=== PATIENT | female | born 1995 | race Caucasian/White ===

== ENCOUNTER 2016-07-26 14:13 | Emergency (ER) | payer SELFPAY ==
[2016-07-26 14:30] VITALS: BP 119/83
== END 2016-07-26 23:21 | disposition left against medical advice (07) ==
LOC: ED 14:13
DX: M79.1 Myalgia (principal); R10.9 Unspecified abdominal pain; R51 Headache; R42 Dizziness and giddiness; Z53.21 Procedure and treatment not carried out due to patient leaving prior to being seen by health care provider

== ENCOUNTER 2016-07-31 01:29 | Emergency (ER) | payer OTHER ==
[2016-07-31 02:20] LABS: Bilirubin,Urine NEG (Negative); Blood,Urine LG (Negative); Ketones,Urine NEG (Negative); Leukocyte Esterase,Urine NEG (Negative); Mucus,Urine FEW /HPF; Nitrite,Urine NEG (Negative); Protein,Urine <15 mg/dL mg/dL (Negative); Urobilinogen,Urine < 2.0 mg/dL (<2.0)
[2016-07-31 02:50] LABS: Basophils % (Auto) 0.5 % (0.0-1.8); Eosinophils % (Auto) 1.3 % (0.0-4.3); Hematocrit 37.4 % (30.3-42.9); Hemoglobin 12.1 gm/dl (10.1-14.3); Mean Corpuscular HGB Conc 32 % (30-34); Mean Corpuscular Volume 77 fl (79-97); Platelet Count 213 K/mm3 (140-440); Red Blood Count 4.86 M/mm3 (3.65-5.03); Red Cell Distribution Width 14.4 % (13.2-15.2); White Blood Count 6.3 K/mm3 (4.5-11.0)
[2016-07-31 02:52] LABS: Mean Corpuscular Hemoglobin 25 pg (28-32)
[2016-07-31 05:48] LABS: INR 1.03 (0.87-1.13)
[2016-07-31 05:49] LABS: Partial Thromboplastin Time 30.3 Sec. (24.2-36.6)
--- NOTE | 2016-07-31 06:23 | Ultrasound Report ---
FINAL REPORT EXAM: US OB TRANSVAGINAL HISTORY: preg, abd pain, vag bleed TECHNIQUE: Real time transabdominal and transvaginal pelvic ultrasound. Initially, transabdominal scanning was performed. Subsequently, transvaginal scanning was performed to better evaluate the uterus and ovaries. PRIORS: None FINDINGS: Uterus measures 7.6 x 3.7 x 5.1 cm. Endometrium is 1.5 cm, slightly heterogeneous. Normal bilateral ovaries measuring 2.7 x 1.6 x 2.2 cm on the right and 2.7 x 1.8 x 1.8 cm on the left. No adnexal mass or free fluid. IMPRESSION: 1. No intrauterine gestation identified. Slightly heterogeneous endometrium at 1.5 cm in thickness. Possibilities include early gestation, spontaneous , or ectopic . Followup beta hCG or ultrasound recommended.
--- NOTE | 2016-07-31 06:24 | Ultrasound Report ---
FINAL REPORT EXAM: US OB < = 14 WEEKS FETUS HISTORY: , abd pain, vaginal bleeding TECHNIQUE: Real time transabdominal and transvaginal pelvic ultrasound. Initially, transabdominal scanning was performed. Subsequently, transvaginal scanning was performed to better evaluate the uterus and ovaries. PRIORS: None FINDINGS: Uterus measures 7.6 x 3.7 x 5.1 cm. Endometrium is 1.5 cm, slightly heterogeneous. Normal bilateral ovaries measuring 2.7 x 1.6 x 2.2 cm on the right and 2.7 x 1.8 x 1.8 cm on the left. No adnexal mass or free fluid. IMPRESSION: 1. No intrauterine gestation identified. Slightly heterogeneous endometrium at 1.5 cm in thickness. Possibilities include early gestation, spontaneous , or ectopic . Followup beta hCG or ultrasound recommended.
[2016-07-31] MEDS ORDERED: TYLENOL PO ONE (10:56)
--- NOTE | 2016-07-31 11:00 | Emergency Department Report ---
ED Female HPI - General Chief complaint: Abdominal Pain Stated complaint: ABD PAIN/DIZZINESS Time Seen by Provider: 07/31/16 10:10 Source: patient Mode of arrival: Ambulatory Limitations: No Limitations - History of Present Illness Initial comments: 21-year-old female with a past medical history of PID presents to the hospital complaining of vaginal spotting and suprapubic cramping abdominal pain 1 week. Patient's last menstrual cycle was 06/22/2016. Patient states the vaginal bleeding and pain started on 07/24/2015. There was a right time for her menstrual cycle but abnormal because it started as spotting and became more heavy today. 3 pads used in 24-hour period. Patient complains of moderate intermittent suprapubic cramping abdominal pain. No complaint of nausea, vomiting, or syncope. - Related Data Allergies Allergy/AdvReac Type Severity Reaction Status Date / Time hydrocodone Allergy Unknown Verified 07/26/16 14:25 ED Review of Systems ROS: Stated complaint: ABD PAIN/DIZZINESS Other details as noted in HPI Comment: All other systems reviewed and negative Other: Constitutional: No fevers chills Eyes: No eye pain visual changes ENT: No ear pain or throat pain Neck: Denies pain Respiratory: Denies cough wheezing shortness of breath Cardiovascular: Denies chest pain, palpitations, syncope GI: as per hpi : Denies dysuria Musculoskeletal: Denies back pain, joint swelling Skin: Denies rash, lesions, erythema Neurologic: Denies headache, numbness, weakness Psychiatric: Denies suicidal ideation, hallucinations ED Past Medical Hx - Past Medical History Previous Medical History?: Yes Additional medical history: PID - Surgical History Past Surgical History?: No - Social History Smoking Status: Never Smoker Substance Use Type: None ED Physical Exam - General Limitations: No Limitations - Other Other exam information: General: No limitations, patient is alert in no acute distress Head exam: Atraumatic, normocephalic Eyes exam: Normal appearance ENT: Moist mucous membrane, normal oropharynx Neck exam: Normal inspection, full range of motion Respiratory exam: Clear to auscultation bilateral, no wheezes, rales, crackles Cardiovascular: Normal rate and rhythm, normal heart sounds Abdomen: Soft, nondistended, suprapubic tenderness, with normal bowel sounds, no rebound, or guarding Extremity: Full range of motion normal inspection no deformity Back: Normal Inspection, full range of motion, no tenderness Neurologic: Alert, oriented x3, cranial nerves intact, no motor or sensory deficit Psychiatric: normal affect, normal mood Skin: Warm, dry, intact ED Course Vital Signs 07/31/16 07/31/16 01:51 10:33 Temperature 97.6 F Pulse Rate 86 Respiratory 20 Rate Blood Pressure 137/81 O2 Sat by Pulse 100 Oximetry - Reevaluation(s) Reevaluation #1: 07/31/16 11:00 Patient has RhoGAM and Tylenol ordered - Consultations Consultation #1: 07/31/16 10:59 Case discussed with Ashley Interiano with PERIPATOLOGIST. Agree to follow-up in 2 days. Request to call the office today to arrange for 2 day follow-up for repeat beta Quant testing ED Medical Decision Making - Lab Data Result diagrams: 07/31/16 02:29 Lab Results 07/31/16 07/31/16 07/31/16 Range/Units 02:05 02:29 02:29 WBC 6.3 (4.5-11.0) K/mm3 RBC 4.86 (3.65-5.03) M/mm3 Hgb 12.1 (10.1-14.3) gm/dl Hct 37.4 (30.3-42.9) % MCV 77 L (79-97) fl MCH 25 L (28-32) pg MCHC 32 (30-34) % RDW 14.4 (13.2-15.2) % Plt Count 213 (140-440) K/mm3 Lymph % (Auto) 32.2 (13.4-35.0) % Patrick % (Auto) 10.8 H (0.0-7.3) % Eos % (Auto) 1.3 (0.0-4.3) % Baso % (Auto) 0.5 (0.0-1.8) % Lymph # 2.0 (1.2-5.4) K/mm3 Patrick # 0.7 (0.0-0.8) K/mm3 Eos # 0.1 (0.0-0.4) K/mm3 Baso # 0.0 (0.0-0.1) K/mm3 Seg Neutrophils % 55.2 (40.0-70.0) % Seg Neutrophils # 3.5 (1.8-7.7) K/mm3 PT (12.2-14.9) Sec. INR (0.87-1.13) APTT (24.2-36.6) Sec. HCG, Quant 82.13 H (0-4) mIU/mL Urine Color Yellow (Yellow) Urine Turbidity Clear (Clear) Urine pH 6.0 (5.0-7.0) Ur Specific [place] 1.018 (1.003-1.030) Urine Protein <15 mg/dl (Negative) mg/dL Urine Glucose (UA) Neg (Negative) mg/dL Urine Ketones Neg (Negative) mg/dL Urine Blood Lg (Negative) Urine Nitrite Neg (Negative) Urine Bilirubin Neg (Negative) Urine Urobilinogen < 2.0 (<2.0) mg/dL Ur Leukocyte Esterase Neg (Negative) Urine WBC (Auto) 1.0 (0.0-6.0) /HPF Urine RBC (Auto) 1.0 (0.0-6.0) /HPF U Epithel Cells (Auto) 1.0 (0-13.0) /HPF Urine Mucus Few /HPF Blood Type Antibody Screen Ord Rhogam Gestat Weeks WEEKS 07/31/16 07/31/16 Range/Units 05:10 05:10 WBC (4.5-11.0) K/mm3 RBC (3.65-5.03) M/mm3 Hgb (10.1-14.3) gm/dl Hct (30.3-42.9) % MCV (79-97) fl MCH (28-32) pg MCHC (30-34) % RDW (13.2-15.2) % Plt Count (140-440) K/mm3 Lymph % (Auto) (13.4-35.0) % Patrick % (Auto) (0.0-7.3) % Eos % (Auto) (0.0-4.3) % Baso % (Auto) (0.0-1.8) % Lymph # (1.2-5.4) K/mm3 Patrick # (0.0-0.8) K/mm3 Eos # (0.0-0.4) K/mm3 Baso # (0.0-0.1) K/mm3 Seg Neutrophils % (40.0-70.0) % Seg Neutrophils # (1.8-7.7) K/mm3 PT 13.4 (12.2-14.9) Sec. INR 1.03 (0.87-1.13) APTT 30.3 (24.2-36.6) Sec. HCG, Quant (0-4) mIU/mL Urine Color (Yellow) Urine Turbidity (Clear) Urine pH (5.0-7.0) Ur Specific [place] (1.003-1.030) Urine Protein (Negative) mg/dL Urine Glucose (UA) (Negative) mg/dL Urine Ketones (Negative) mg/dL Urine Blood (Negative) Urine Nitrite (Negative) Urine Bilirubin (Negative) Urine Urobilinogen (<2.0) mg/dL Ur Leukocyte Esterase (Negative) Urine WBC (Auto) (0.0-6.0) /HPF Urine RBC (Auto) (0.0-6.0) /HPF U Epithel Cells (Auto) (0-13.0) /HPF Urine Mucus /HPF Blood Type AB NEGATIVE Antibody Screen Negative Ord Rhogam Gestat Weeks <11 WEEKS - Radiology Data Radiology results: report reviewed Transvaginal/pelvic ultrasound: No IUP. Slightly heterogenous endometrium at 1.5 cm in thickness. No Adnexal masses or free fluid - Medical Decision Making Patient is agreeable to receiving RhoGAM and explained to her that it is considered a blood product. Patient denies any buddhist contraindication to receiving blood products and is agreeable to receiving RhoGAM at this time. I explained to patient the differential of early versus ectopic versus miscarriage and importance of follow-up in 2 days for repeat beta hCG testing. Patient was provided number for [facility] to schedule follow-up. Alternatively patient may return here for follow-up if unable to see [facility] but [facility] is preferred. No ultrasound identification of IUP and there were no signs of free fluid at this time. - Differential Diagnosis miscarriage, ectopic, menstrual cycle Critical Care Time: No Critical care attestation.: If time is entered above; I have spent that time in minutes in the direct care of this critically ill patient, excluding procedure time. ED Disposition Clinical Impression: Bleeding in early Rh negative status during Qualifiers: Trimester: first trimester Qualified Code(s): O09.891 - Supervision of other high risk pregnancies, first trimester Disposition: DISCHARGED TO HOME OR SELFCARE Is pt being admited?: No Does the pt Need Aspirin: No Condition: Stable Instructions: Ectopic (ED), Threatened Miscarriage (ED) Additional Instructions: You have a diagnoses of bleeding in early . The cause of the bleeding is unknown at this time. As discussed in the ER this could mean that you have a normal early that has not yet seen on ultrasound, an ectopic that has not yet seen on ultrasound, or you are having a miscarriage. It is very important that you follow-up in 2 days 08/02 for repeat blood work. Your Bhcg (baby hormone level today is 82.13). This number will decrease if you are having a miscarriage. Take tylenol only as needed for pain. You were provided discharge instructions for 2 diagnoses ectopic and threatened miscarriage since your diagnosis is unclear at this time. Return if symptoms worsen as indicated by these discharge instructions. Referrals: VENUS INTERIANO CNM [Advanced Practice Nurse] - 08/02/16 (CALL TODAY to schedule appointment for the 25th per Venus Interiano instructions) Time of Disposition: 11:06
[2016-07-31 11:41] VITALS: BP 96/57
== END 2016-07-31 11:40 | disposition home or self-care (01) ==
LOC: ED 01:29
DX: O20.9 Hemorrhage in early pregnancy, unspecified (principal); O09.891 Supervision of other high risk pregnancies, first trimester; Z3A.01 Less than 8 weeks gestation of pregnancy
CPT/HCPCS: 36415; 76801; 76817; 81001; 84702; 85025; 85610; 85730; 86850; 86900; 86901; 99284; J2790